=== PATIENT | male | born 1930 | race Caucasian/White ===

== ENCOUNTER → 2017-06-04 | Day surgery (SDC) | payer OTHER ==
--- NOTE | 2017-05-29 14:14 | History & Physical Pre-Op ---
General Information and HPI History of Present Illness: Here for evaluation of newly discovered right inguinal hernia. mild pain. aggravated by exertion, working in the yard, etc. no n/v/change to bowel or bladder habits. Allergies/Medications Allergies: Coded Allergies: MDX - Penicillin (PENICILLIN) (Intermediate, HIVES 06/04/13) Home Med list Alendronate Sodium (Fosamax) 70 MG TABLET 1 TAB PO QW osteoporosis (Reported) in the morning, at least 30 minutes before the first food, beverage, or medication of the day Apixaban (Eliquis) 5 MG TABLET 1 TAB PO BID A FIB (Reported) Atorvastatin Calcium 40 MG TABLET 1 TAB PO EVERY OTHER CHOLESTEROL (Reported) Calcium Carbonate (Calcium 600) 600 MG TAB 1 TAB PO DAILY SUPPLEMENT ( Reported) Cyanocobalamin (Vitamin B12) 1,000 MCG TAB 1,000 MCG PO DAILY gait stability, stroke risk Losartan Potassium (Cozaar) 50 MG TABLET 1 TAB PO DAILY HTN (Reported) Oxybutynin Chloride 5 MG TABLET 1 TAB PO BID BPH (Reported) TAMSULOSIN HCL (Tamsulosin Hydrochloride) 0.4 MG CAP.ER.24H 1 CAP PO DAILY PROSTATE (Reported) Tamsulosin HCl (Flomax) 0.4 MG CAP.ER.24H 1 CAP PO DAILY BPH (Reported) Past History Medical History Neurological: TIA Cardiovascular: AFIB, CAD, hypertension, hyperlipidemia History of MRSA: No History of VRE: No History of CDIFF: No Pneumonia Vaccine: 08/15/04 Influenza Vaccine: 08/03/14 Surgical History Pertinent Surgical History: appendectomy, cataract removal Past Family/Social History Family History Relations & Conditions if any Relation not specified for: *No pertinent family history Psychosocial History Smoking Status: Former Smoker ETOH Use: occasional use Review of Systems Review of Systems: Patient reports shortness of breath but reports no cough, no wheezing, and no coughing up blood. He reports difficulty urinating and urinary frequency but reports no incontinence and no hematuria. He reports no fatigue, no fever, no night sweats, no significant weight gain, no significant weight loss, and no exercise intolerance. He reports no abnormal moles, no jaundice, no hives, no eczema, and no rashes. He reports no swollen glands and no neck stiffness. He reports no chest pain, no arm pain on exertion, no shortness of breath when walking, no shortness of breath when lying down, no palpitations, and no known heart murmur. He reports normal appetite, no abdominal pain, no vomiting, no vomiting blood, no bloating, no diarrhea, no belching, no constipation, no regurgitation, and no rectal bleeding. He reports no muscle aches, no muscle weakness, no arthralgias/joint pain, and no back pain. Exam & Diagnostic Data Last 24 Hrs of Vital Signs/I&O Intake & Output 05/29 1600 05/29 0800 05/29 0000 Intake Total Output Total Balance Patient 160 lb Weight Physical Exam: constitutional: General Appearance: healthy-appearing, well-nourished, and well- developed. Level of Distress: no acute distress. Ambulation: ambulating normally. Head: Head: normocephalic and atraumatic. Neck: Neck: supple, trachea midline, no masses, and full range of motion. Thyroid: no enlargement or nodules and non-tender. Lymph Nodes: no cervical LAD, supraclavicular LAD, axillary LAD, or inguinal LAD. Cardiovascular: Heart Auscultation: normal S1 and S2; no murmurs, rubs, or gallops; and irregularly irregular. Lungs: Respiratory effort: no dyspnea. Percussion: dullness or flatness (right side). Auscultation: no wheezing, rales/crackles, or rhonchi and breath sounds normal, good air movement, and clear to auscultation. Back: Thoracolumbar Appearance: normal curvature. Abdomen: Inspection and Palpation: no tenderness, guarding, masses, rebound tenderness, or CVA tenderness and soft and non-distended. Bowel Sounds: normal. Liver: non-tender and no hepatomegaly. Spleen: non-tender and no splenomegaly. Hernia: inguinal (reducible right). Skin: Inspection and palpation: no rash, lesions, ulcer, induration, nodules, jaundice, or abnormal nevi and good turgor. Musculoskeletal:: Extremities: no cyanosis, edema, varicosities, or palpable cord. Motor Strength and Tone: normal tone and motor strength. Joints, Bones, and Muscles: no contractures, malalignment, tenderness, or bony abnormalities and normal movement of all extremities. Psychiatric: Insight: good judgement and insight. Mental Status: normal mood and affect and active and alert. Orientation: to time, place, and person. Memory: recent memory normal and remote memory normal. Assessment/Plan Assessment/Plan: Right inguinal hernia - Recommend repair laparoscopically. Patient reluctant. Wants to think it over first. Asked to get eval by cardiolgist in the interim. As Ranked By This Provider Problem List: 1. Unilateral inguinal hernia without obstruction or gangrene
[~2017-06-04] VITALS: Ht 182.9 cm; Wt 72.6 kg
[~2017-06-04] MED LIST: ASPIRIN CHILDRE81 MG PO; ATORVASTATIN CA40 M1 PO; ATORVASTATIN CA40 MG PO; BACTRIM DS 8001 TAB PO; CALCIUM 600600 M1 PO; COUMADIN 5 MG TA5 MG PO; COZAAR50 M1 PO; ELIQUIS5 M1 PO; FLOMAX0.4 M1 PO; FOSAMAX70 M1 PO; LOPRESSOR 25MG25 MG PO; MEDROL DOSEPAK1 PAC PO; OXYBUTYNIN CHLOR5 M2 PO; PRINIVIL 5MG5 MG PO; TAMSULOSIN HYD0.4 MG PO; VITAMIN B121000 MCG PO; WARFARIN SODIUM4 MG PO
--- NOTE | 2017-06-04 12:21 | Operative Report ---
Operative/Inv Procedure Report Surgery Date: 06/04/17 Name of Procedure: Laparoscopic right inguinal hernia repair Pre-Operative Diagnosis: Right inguinal hernia Post-Operative Diagnosis: Same Estimated Blood Loss: scant Surgeon/Counterintelligence Analyst: ROGELIO MARTÍNEZ,ALEJANDRO Funes/Josue NEWELL Anesthesia: general endotracheal tube Implants: Parietex mesh Operative/Procedure Note Note: After consent patient is brought to the operating room laid supine. General anesthesia was obtained and the abdomen was prepped and draped. Skin was anesthetized with local anesthesia and a transverse infraumbilical incision made sharply. We identified the rectus fascia and incised transversely. Stay sutures were placed. Rectus muscle was retracted laterally and a dissecting balloon placed posterior to it. It was inflated under direct vision the camera and replaced with a blunt John port. Gas was instilled. 2, 5 mm ports were placed in the infraumbilical midline after local anesthesia was instilled and under direct vision and camera. Began our dissection at the pubis and delineated the symphysis. Pete's ligament was identified and cleared on the right side. Then dissected laterally and developed the iliopubic tract. The cord structures were circumferentially dissected. There was a large indirect sac which was dissected free from the cord structures and extracted from the indirect space. It is reflected medially. Once the dissection was completed a right-sided piece of Parietex mesh was placed in the cavity. It was placed around the cord structures re-create the internal ring and cover the femoral and direct spaces as well. Gas was allowed to escape on maintaining proper orientation of the mesh. The fascia was closed with 0 Vicryl suture. Skin incisions closed with 4-0 Vicryl. Steri-Strips and sterile dressing applied. Sponge and needle counts are correct. CC: BONNIE MARTÍNEZ,MIESHA Harry; SONNY MARTÍNEZ,JOY Cheek
== END ==
LOC: STS 02:14
DX: K40.90 Unilateral inguinal hernia, without obstruction or gangrene, not specified as recurrent (principal); I48.91 Unspecified atrial fibrillation; Z79.01 Long term (current) use of anticoagulants; I10 Essential (primary) hypertension; E78.00 Pure hypercholesterolemia, unspecified; Z86.73 Personal history of transient ischemic attack (TIA), and cerebral infarction without residual deficits; Z87.891 Personal history of nicotine dependence
CPT/HCPCS: 93005; 93010; C1781; J0131; J2250